=== PATIENT | female | born 1950 | race Caucasian/White ===

== ENCOUNTER → 2019-09-13 | Outpatient (CLI) | payer MEDICARE ==
[2019-09-13 21:07] LABS: AFPT MARKER 5.7 ng/mL (0.0-8.3); CA 125 9.4 U/mL (0.0-38.1); DHEA SO4 61.4 ug/dL (20.4-186.6)
== END | disposition home or self-care (01) ==
LOC: LAB 10:29
PROVIDERS: ATTEND Obstetrics & Gynecology
DX: C56.2 Malignant neoplasm of left ovary (principal); C56.1 Malignant neoplasm of right ovary
CPT/HCPCS: 36415; 82105; 82627; 83615; 86304

== ENCOUNTER → 2021-01-25 | Outpatient (CLI) | payer MEDICARE ==
--- NOTE | 2021-01-25 14:54 | RAD ---
INDICATION: Screening for osteopenia/osteoporosis. Postmenopausal evaluation. COMPARISON: None. TECHNIQUE: Bone densitometry was performed through the lumbar spine and proximal femur. IMPRESSION: Lumbar Spine: BMD: 1.03 T-Score: -1.3 Range: Osteopenic Proximal Femur: BMD: 0.74 T-Score: -1.8 Range: Osteopenic World Health Organization Criteria for Bone Density: T-Score: > -1.0: Normal Range < -1.0 to -2.5: Osteopenic Range < -2.5: Osteoporotic Range Electronically signed by: Edward Drummond MD (01/25/2021 2:51 PM) [id number]
--- NOTE | 2021-01-26 12:29 | RAD ---
PROCEDURE: MG BILAT SCREEN+JEAN HISTORY: The patient is 70 years old and is seen for Reason: SCREENING / Spl. Instructions: / Histor y: . COMPARISON: 04/13/2018 TECHNIQUE: CC and MLO views of both breasts were obtained. Images were processed by the [employer] computer-aided detection system. DENSITY: The breast parenchyma is extremely dense, which could obscure a lesion on mammography. FINDINGS: No developing mass, suspicious calcifications or architectural distortion. IMPRESSION: Negative. No evidence of malignancy. Recommend annual screening mammograms per [employer] guidelines. BI-RADS category 1 Negative Patient entered into a reminder system for annual screening mammogram. Electronically signed by: Carloz Timmons MD (01/26/2021 12:26 PM) [id number]
== END ==
LOC: DXRAD 13:59
PROVIDERS: ATTEND Physician Assistant
DX: Z12.31 Encounter for screening mammogram for malignant neoplasm of breast (principal); Z13.820 Encounter for screening for osteoporosis; M85.88 Other specified disorders of bone density and structure, other site
CPT/HCPCS: 77063; 77067; 77080

== ENCOUNTER → 2021-02-20 | Outpatient (CLI) | payer MEDICARE ==
--- NOTE | 2021-02-20 18:08 | RAD ---
C-spine 3 views. HISTORY: Neck pain 3 views were taken of the cervical spine. There is degenerative disc disease with spurring at C5-6. T here is mild disc space narrowing at C4-5. There is marked facet arthritis at C2-3 and C3-4. There is mild facet arthritis at C6-7 and C7-T1. Facet arthritis is more prominent on the left than on the ri ght. Odontoid is intact. IMPRESSION: 1. Degenerative changes in the cervical spine. 2. Degenerative disc disease most prominent at C5-6. Electronically signed by: Juan Dodge MD (02/20/2021 6:06 PM) [facility]
== END ==
LOC: PMG 16:08
PROVIDERS: ATTEND Family Medicine
DX: M47.812 Spondylosis without myelopathy or radiculopathy, cervical region (principal); M50.322 Other cervical disc degeneration at C5-C6 level
CPT/HCPCS: 72040

== ENCOUNTER 2021-09-07 06:15 | Emergency (ER) | payer MEDICARE ==
[~2021-09-07] VITALS: Ht 162.6 cm; Wt 63.5 kg
[2021-09-07 06:48] VITALS: BP 157/82
[2021-09-07] MEDS ORDERED: DIPH,PERTUSS(ACELL),TET VAC/PF 0.5 ML SYRINGE. VAX IM ONE (07:05)
[2021-09-07] MEDS: NEOMY/BACITR/POLYMYXIN OINT PACKET. TP ONE (07:09)
[2021-09-07] MEDS: FLUORESCEIN 1MG EYE STRIP. OU ONE (07:09)
[2021-09-07] MEDS: DIPH,PERTUSS(ACELL),TET VAC/PF 0.5 ML SYRINGE. VAX IM ONE (07:14)
--- NOTE | 2021-09-07 07:32 | PHYS DOC ---
Past History Past Surgical History: Appendectomy Additional Past Surgical Histo: lump left breast, General Adult EDM: Chief Complaint: MECHANICAL FALL HPI: HPI: 70-year-old female past medical history of hyperlipidemia and former alcoholism (last drink was 2007), presents the ED with complaints of soreness to her forehead and under her left eye after patient fell yesterday around 5:30 PM, also c/o left wrist pain. Patient states she tripped outside on her porch and feel forward with her left hand underneath her. Reports her glasses broke and she believes she cut her face with the frame of her eyeglasses. Cannot recall her last tetanus. Reports she was not influence of any alcohol or drugs when she tripped-is in remission from alcoholism. Is not on any anticoagulants. Reports left wrist pain is mild, no decreased range of motion. No associated chest pain, dyspnea, dizziness, lightheadedness, blurry vision, neck pain, headache or loss of consciousness. No h/o ICH or TBI. Review of Systems: Review of Systems: Constitutional: Denies fever or chills Eyes: Denies change in visual acuity or blurry vision HENT: Denies nasal congestion or sore throat Respiratory: Denies cough or shortness of breath Cardiovascular: Denies chest pain or edema GI: Denies abdominal pain, nausea, vomiting, bloody stools or diarrhea : Denies saddle anesthesia or incontinence Musculoskeletal: Denies back pain or CVA tenderness Integument: Denies rash or diaphoresis Neurologic: Denies headache, midline neck pain, focal weakness or sensory changes Endocrine: Denies polyuria or polydipsia Lymphatic: Denies swollen glands Psychiatric: Denies depression or anxiety Current Medications: Current Meds: Current Medications Medications (Trade) Dose Ordered Sig/Nette Start Time Stop Time Status Last Admin Dose Admin Diphtheria/ Pertussis/Tetanus Vacc (ADACEL TDap SYRINGE) 0.5 ml ONCE ONCE 09/07/21 07:15 09/07/21 07:16 DC 09/07/21 07:14 0.5 ML Fluorescein Sodium (Ful-Martha 1mg) 1 strip 1X ONCE 09/07/21 07:00 09/07/21 07:03 DC 09/07/21 07:09 1 STRIP Neomycin/ Polymyxin/ Bacitracin (Triple Antibiotic Ointment) 1 pkt 1X ONCE 09/07/21 07:00 09/07/21 07:03 DC 09/07/21 07:09 1 PKT Allergies: Allergies: Allergies Coded Allergies Type Severity Reaction Last Updated Verified No Known Drug Allergies 09/07/21 No Physical Exam: PE: Constitutional: Well developed, well nourished, no acute distress, non-toxic appearance. HENT: 2 cm vertical laceration with no wound dehiscence over glabella, facial sensation intact, no septal hematoma Eyes: PERRLA, EOMI, conjunctiva normal, no discharge, mild right inferior periorbital ecchymosis, moderate left inferior periorbital ecchymosis, no fluorescein uptake on Stoner lamp-negative Bola sign, Neck: Normal range of motion, supple, Nexus C-spine criteria are negative: There is no post midline tenderness, the patient is not intoxicated, there is a normal level of alertness, there are no focal neurologic deficits and there are no distracting injuries, Cardiovascular: S1/2 present, regular rhythm Lungs & Thorax: Speaking in full sentences, bilateral equal chest rise, no tachypnea or increased work of breathing Abdomen: soft, no tenderness, Skin: Warm, dry, Back: No tenderness, no CVA tenderness. [] Extremities: No tenderness, no cyanosis, no lower extremity edema ,equal radial pulses, no bruising, deformity or obvious trauma to left wrist elbow or shoulder-left upper extremity with full range of motion Neurologic: Alert and oriented X 3, normal motor function, normal sensory function, no focal deficits noted. [] Psychologic: Affect normal, pleasant/respectful mood Current Patient Data: Vital Signs: Vital Signs Date Time Temp Pulse Resp B/P (MAP) Pulse Ox O2 Delivery O2 Flow Rate FiO2 09/07/21 06:48 98.1 16 157/82 (107) 99 Room Air EKG: EKG: [] Radiology/Procedures: Radiology/Procedures: IMAGING REPORT Signed PATIENT: VASILE SANTANA MACCOUNT: [id number] : 1950 LOCATION: ER AGE: 70 SEX: F EXAM STATUS: REG ER ORD. PHYSICIAN: LUCAS JOSE DO REASON: fall, b.preeti face injury PROCEDURE: CT HEAD AND CERVICAL SPINE WO CT HEAD AND C-SPINE WO, CT MAXILLOFACIAL WITHOUT CONTRAST History: Reason: fall, b.preeti face injury / Spl. Instructions: / History: . Pain Comparison: None. Technique: Noncontrast CT imaging was performed of the head, maxillofacial and cervical spine. Coronal and sagittal reconstructions were performed. Exposure: One or more of the following individualized dose reduction techniques were utilized for this examination: 1. Automated exposure control 2. Adjustment of the mA and/or kV according to patient size 3. Use of iterative reconstruction technique. Findings: Head CT: No intracranial hemorrhage. No mass effect. No hydrocephalus. Extra- axial spaces are unremarkable. Maxillofacial CT: No acute maxillofacial fracture. Superior paranasal soft tissue swelling with laceration and subcutaneous gas. Orbits are unremarkable. Paranasal sinuses and mastoid air cells are clear. No acute calvarial fracture. Cervical spine CT: Reversal of the cervical spine lordosis. Slight grade 1 anterolisthesis C3 on C4. Normal vertebral body height. No acute fracture. Moderate degenerative disc changes most prominent C4-C5 and C5-C6. Facet arthropathy. Moderate canal narrowing most prominent C5-C6. No high-grade canal stenosis. Multilevel neuroforaminal narrowing. Soft tissues are unremarkable. Impression: Head CT: 1. No acute intracranial abnormality. Maxillofacial CT: 1. No acute maxillofacial fracture. 2. Superior paranasal soft tissue swelling and laceration. Cervical spine CT: 1. No acute fracture or subluxation of the cervical spine. 2. Moderate multilevel cervical spondylosis with canal narrowing most prominent C5-C6. Electronically signed by: Salvador Dao DO (09/07/2021 8:08 AM) [facility] REPORT Signed PATIENT: VASILE SANTANA MACCOUNT: [id number] : 1950 LOCATION: ER AGE: 70 SEX: F EXAM STATUS: REG ER ORD. PHYSICIAN: LUCAS JOSE DO REASON: left wrist pain PROCEDURE: WRIST 3V LEFT XR LT WRIST 3VIEWS DATE: 09/07/2021 7:27 AM INDICATION: left wrist pain COMPARISON: None. FINDINGS: Bones: There is no evidence of acute fracture or dislocation. Joints: The joint spaces are normal. Miscellaneous: None. IMPRESSION: No evidence of acute fracture. Electronically signed by: John Paul Rogers MD (09/07/2021 7:59 AM) [id number] DICTATED AND SIGNED BY: JOHN PAUL ROGERS MD DATE: 09/07/21 0759 CC: RIVAS BELLE MD; KELVINYARIELLUCAS DO ~MTH0 0 Heart Score: C/O Chest Pain: No Risk Factors: Risk Factors: DM, Current or recent (<one month) smoker, HTN, HLP, family history of CAD, obesity. Risk Scores: Score 0 - 3: 2.5% MACE over next 6 weeks - Discharge Home Score 4 - 6: 20.3% MACE over next 6 weeks - Admit for Clinical Observation Score 7 - 10: 72.7% MACE over next 6 weeks - Early Invasive Strategies Course & Med Decision Making: Course & Med Decision Making Pertinent Labs and Imaging studies reviewed. (See chart for details) Concern for blunt facial injury with healing laceration over the glabella, no wound dehiscence, no need for stitches. Patient also with bilateral periorbital ecchymosis. Extraocular muscles intact with no blurry vision, headache or midline neck pain. Wound care instructions given. Tetanus was updated. Will discharge home with strict ED return precautions were given for severe headache, confusion, intractable nausea or vomiting or neurologic deficits. Encouraged urgent outpatient follow-up with PMD for reevaluation/routine follow-up. Life- threatening processes were considered but are low suspicion at this time, given history, physical exam and ED workup. Pt was educated on all prescription medications and adverse effects. All patient's questions were answered and pt was stable at time of discharge. Life/limb-threatening differential includes but is not limited to, intracranial hemorrhage, diffuse axonal injury, spinal cord syndrome, unstable cervical fracture or SCIWORA, fractures or joint dislocations, neurovascular injuries, organ injury or laceration, pneumothorax, pneumoperitoneum, pericardial tamponade, unstable pelvic fracture, compartment syndrome, flail chest or respiratory distress, burn injury or asphyxiation I have spoken with the patient and/or caregivers. I explained the patient's condition, diagnoses and treatment plan based on the information available to me at this time. I have answered the patient and/or caregiver's questions and addressed any concerns. The patient and/or caregivers have a good understanding of patient's diagnosis, condition and treatment plan as can be expected at this point. Vital signs have been stable. Patient's condition is stable and appropriate for discharge from the emergency department. Patient will pursue further outpatient evaluation with primary care physician or other designated or consulting physician as outlined in the discharge instructions. The patient and/or caregivers are agreeable to this plan of care and follow-up instructions have been explained in detail. The patient and/or caregivers have received these instructions in written form and have expressed an understanding of the discharge instructions. The patient and/or caregivers are aware that any significant change of condition or worsening of symptoms should prompt immediate return to this or the closest emergency department or call to [facility] Disclaimer: [employer] Disclaimer: This electronic medical record was generated, in whole or in part, using a voice recognition dictation system. Departure Departure: Impression: Primary Impression: Blunt trauma of face Additional Impressions: Contusion of face Need for Tdap vaccination Healing laceration Disposition: HOME / SELF CARE / HOMELESS Condition: STABLE Referrals: RIVAS BELLE MD (PCP) Follow up with your pcp in 1-2 days or [facility] [phone] OR [facility]-Dr. Romero [phone] Patient Instructions: Contusion, VIS, Tetanus, Diphtheria (Td); Tetanus, Diphtheria, Pertussis (Tdap) - CDC, Wound Care, [id number] Additional Instructions: RETURN TO THE EMERGENCY DEPARTMENT IF YOU SHOULD DEVELOP: Any severe headache, confusion, nausea/vomiting, weakness or sensory deficits/neurologic deficits, facial droop or blurry vision EMERGENCY DEPARTMENT GENERAL DISCHARGE INSTRUCTIONS Thank you for coming to [facility] (ED) today and trusting us with you care. We trust that you had a positivie experience in our Emergency Department. If you wish to speak to the department management, you may call the director at [phone]. YOUR FOLLOW UP INSTRUCTIONS ARE FOLLOWS: 1. Do you have a private Doctor? If you do not have a private doctor, please ask for a resource list of physicians or clinics that may be able to assist you with follow up care. 2. The Emergency Physician has interpreted your x-rays. The X-Ray specialist will also review them. If there is a change in the findings, you will be notified in 48 hours when at all possible. 3. A lab test or culture has been done, your results will be reviewed and you will be notified if you need a change in treatment. ADDITIONAL INSTRUCTIONS AND INFORMATION: 1. Your care today has been supervised by a physician who is specially trained in emergency care. Many problems require more than one evaluation for a complete diagnosis and treatment. We recommend that you schedule your follow up appointment as recommended to ensure complete treatment of you illness or injury. If you are unable to obtain follow up care and continue to have a problem, or if your condition worsens, we recommend that you return to the ED. 2. We are not able to safely determine your condition over the phone nor are we able to give sound medical advice over the phone. For these safety reasons, if you call for medical advice we will ask you to come to the ED for further evaluation. 3. If you have any questions regarding these discharge instructions please call the ED at [phone]. SAFETY INFORMATION: In the interest of safety, wellness, and injury prevention; we encourage you to wear your sealbelt, if you smoke; quite smoking, and we encourage family to use a protective helmet for bicycling and other sporting events that present an increased risk for head injury. IF YOUR SYMPTOMS WORSEN OR NEW SYMPTOMS DEVELOP, OR YOU HAVE CONCERNS ABOUT YOUR CONDITION; OR IF YOUR CONDITION WORSENS WHILE YOU ARE WAITING FOR YOUR FOLLOW UP PRISCILA OINTMENT; EITHER CONTACT YOUR PRIMARY CARE DOCTOR, THE PHYSICIAN WHOSE NAME AND NUMBER YOU WERE GIVEN, OR RETURN TO THE ED IMMEDIATELY. LUCAS SALDIVAR DO Sep 07, 2021 07:32
--- NOTE | 2021-09-07 08:02 | RAD ---
XR LT WRIST 3VIEWS DATE: 09/07/2021 7:27 AM INDICATION: left wrist pain COMPARISON: None. FINDINGS: Bones: There is no evidence of acute fracture or dislocation. Joints: The joint spaces are normal. Miscellaneous: None. IMPRESSION: No evidence of acute fracture. Electronically signed by: Alessandro Rogers MD (09/07/2021 7:59 AM) [id number]
--- NOTE | 2021-09-07 08:10 | RAD ---
CT HEAD AND C-SPINE WO, CT MAXILLOFACIAL WITHOUT CONTRAST History: Reason: fall, b.preeti face injury / Spl. Instructions: / History: . Pain Comparison: None. Technique: Noncontrast CT imaging was performed of the head, maxillofacial and cervical spine. Gregory l and sagittal reconstructions were performed. Exposure: One or more of the following individualized dose reduction techniques were utilized for thi s examination: 1. Automated exposure control 2. Adjustment of the mA and/or kV according to patient size 3. Use of iterative reconstruction technique. Findings: Head CT: No intracranial hemorrhage. No mass effect. No hydrocephalus. Extra-axial spaces are unrema rkable. Maxillofacial CT: No acute maxillofacial fracture. Superior paranasal soft tissue swelling with lacer ation and subcutaneous gas. Orbits are unremarkable. Paranasal sinuses and mastoid air cells are clear. No acute calvarial fractu re. Cervical spine CT: Reversal of the cervical spine lordosis. Slight grade 1 anterolisthesis C3 on C4. Normal vertebral harjit dy height. No acute fracture. Moderate degenerative disc changes most prominent C4-C5 and C5-C6. Facet arthropathy. Moderate canal narrowing most prominent C5-C6. No high-grade canal stenosis. Multilevel neuroforaminal narrowing. Soft tissues are unremarkable. Impression: Head CT: 1. No acute intracranial abnormality. Maxillofacial CT: 1. No acute maxillofacial fracture. 2. Superior paranasal soft tissue swelling and laceration. Cervical spine CT: 1. No acute fracture or subluxation of the cervical spine. 2. Moderate multilevel cervical spondylosis with canal narrowing most prominent C5-C6. Electronically signed by: Salvador Dao DO (09/07/2021 8:08 AM) [facility]
== END 2021-09-07 08:40 | disposition home or self-care (01) ==
LOC: ER 06:15
DX: S00.83XA Contusion of other part of head, initial encounter (principal); W01.0XXA Fall on same level from slipping, tripping and stumbling without subsequent striking against object, initial encounter; Y93.89 Activity, other specified; Y92.89 Other specified places as the place of occurrence of the external cause; Y99.8 Other external cause status
CPT/HCPCS: 70450; 70486; 72125; 73110; 90471; 90715; 99285-25